=== PATIENT | male | born 1955 | race Hispanic/Latino ===

== ENCOUNTER 2018-02-25 07:26 | Day surgery (SDC) | payer MEDICAID ==
[2018-02-25] MEDS ORDERED: Lactated Ringer's 500 ML IV ONE (07:58)
[2018-02-25 08:13] VITALS: TEMP 98
[2018-02-25] MEDS ORDERED: Propofol 10 mg/ml Inj (20 ML) ONE (09:27)
[2018-02-25 10:07] VITALS: BP 110/60; PULSE 71; RESP 18; O2SAT 97
== END 2018-02-25 14:17 | disposition home or self-care (01) ==
LOC: H.ENDO 07:26
PROVIDERS: ATTEND Internal Medicine Gastroenterology
DX: R12 Heartburn (principal); E11.9 Type 2 diabetes mellitus without complications; I10 Essential (primary) hypertension; E78.5 Hyperlipidemia, unspecified; K29.50 Unspecified chronic gastritis without bleeding
CPT/HCPCS: 43239; 82948; 88305; J2001; J2704; J7120